=== PATIENT | male | born 1980 | race Caucasian/White ===

== ENCOUNTER → 2017-04-05 | Outpatient (CLI) | payer MEDICAID ==
[~2017-04-05] MED LIST: AMLO5TAB PO; AMOXICILLIN AND1 TA1 PO; ASPIRIN 81MG TA81 MG PO; BACTRIM DS 8001 TA1 PO; CLEOCIN HCL300 MG PO; DICLOFENAC 50MG50 MG PO; IMODIUM2 MG PO; KEFLEX 500MG.500 MG PO; MEDROL 4MG. DOSE4 MG PO; MOTRIN800 MG PO; NOMEDS XX; PHENERGAN 25MG.25 M1 PO; PHENERGAN VC +120 ML PO; POTASSIUM CHLO10 ME1 PO; PRAVASTATIN SOD20 MG PO; PREDNISONE 20MG20 MG PO; RANITIDINE150 M1 PO; ZITHROMAX 250M250 MG PO; ZOFRAN ODT8 MG PO
[2017-04-05 11:09] LABS: HEMOGLOBIN 15.9 g/dL (14.1-18.0); LYMPH # 1.7 K/mm3 (0.7-4.5); LYMPH % 29.4 % (10-50)
[2017-04-05 15:32] LABS: BUN 8 mg/dL (7-18)
[2017-04-05 15:33] LABS: GFR (ESTIMATED) 109 ML/MIN (>60)
== END ==
LOC: LAB 10:39
PROVIDERS: Nurse Practitioner Family
DX: R20.2 Paresthesia of skin (principal); I10 Essential (primary) hypertension; E78.2 Mixed hyperlipidemia

== ENCOUNTER → 2017-05-02 | Outpatient (CLI) | payer MEDICAID ==
[2017-05-13 14:54] LABS: STOOL OCCULT BLOOD NEGATIVE (NEG)
== END ==
LOC: LAB 21:00
PROVIDERS: Nurse Practitioner Family
DX: K92.1 Melena (principal)
CPT/HCPCS: G0328

== ENCOUNTER → 2017-05-06 | Outpatient (CLI) | payer MEDICAID ==
[2017-05-13 14:54] LABS: STOOL OCCULT BLOOD NEGATIVE (NEG)
== END ==
LOC: LAB 11:38
PROVIDERS: Nurse Practitioner Family
DX: K92.1 Melena (principal)
CPT/HCPCS: G0328